=== PATIENT | female | born 1975 | race Caucasian/White ===

== ENCOUNTER 2016-11-03 10:16 | Emergency (ER) | payer BC, OTHER ==
[2016-11-03] MEDS ORDERED: NO HOME MEDICATION XX (10:41)
== END 2016-11-03 12:35 ==
LOC: EDMED 10:16
DX: S70.12XA Contusion of left thigh, initial encounter (principal); V59.40XA Driver of pick-up truck or van injured in collision with unspecified motor vehicles in traffic accident, initial encounter; Y92.410 Unspecified street and highway as the place of occurrence of the external cause